=== PATIENT | male | born 1975 | race Caucasian/White ===

== ENCOUNTER 2022-04-16 12:01 | Emergency (ER) | payer OTHER, SELFPAY ==
[2022-04-16 12:15] VITALS: BP 153/77; PULSE 71; RESP 20; TEMP 36.6; O2SAT 100
--- NOTE | 2022-04-16 12:22 | ED.MEDCLEAR ---
HPI - Medical Clearance General Chief complaint: Medical Clearance Stated complaint: Medication Refill Time Seen by Provider: 04/16/22 12:20 History of Present Illness HPI Narrative: Brant Morfin is a 46-year-old male with a PMH of high blood pressure, IBS and anxiety, who comes for a refill on his lisinopril; has had meds through yesterday and is not symptomatic Related Information Home Medications Medication Instructions Recorded Confirmed lisinopril 40 mg tablet 40 mg PO DAILY 03/05/20 04/16/22 eluxadoline 75 mg tablet (Viberzi) 1 tablet PO BID 04/16/22 04/16/22 sertraline 50 mg tablet 1 tablet PO HS 04/16/22 04/16/22 Allergies Allergy/AdvReac Type Severity Reaction Status Date / Time No Known Allergies Allergy Verified 04/16/22 12:09 Review of Systems Review of Systems: CONSTITUTIONAL: Denies fever, chills, sweats. EYES: Denies visual changes, redness, discharge. ENT: Denies rhinorrhea, congestion, sore throat, otalgia. CARDIOVASCULAR: Denies chest pain, palpitations, edema. RESPIRATORY: Denies dyspnea, wheezing, cough GASTROINTESTINAL: Denies abdominal pain, nausea, vomiting, diarrhea. GENITOURINARY: Denies dysuria, hematuria, abnormal discharge SKIN: Denies rash or itching. NEUROLOGIC: Denies numbness, or focal weakness. PSYCHIATRIC: Denies anxiety or depression. PMFSH Past Medical History Medical History Anxiety Essential hypertension IBS (irritable bowel syndrome) Surgical History Surgical History H/O arthroscopy Family History Family History Father Diabetes mellitus Hyperlipemia Mother Hypertension Sibling Hyperlipemia Social History Social History Smoking status: Never smoker Comments At time of signature, I agree with nursing past medical, surgical, social and family history. There is no relevant family history pertinent to the presenting complaint. Exam Narrative: GENERAL: This is a well-nourished, well-developed patient, in mild distress. HEAD: normocephalic, atraumatic. EYES: . Sclera clear/white. Vision is grossly intact. EARS: External ears normal, Hearing grossly intact. NOSE: External nose normal without nasal discharge, nares without redness, no rhinorrhea. THROAT: Mucous membranes moist, NECK: Neck supple, CARDIOVASCULAR: Regular rate and rhythm without murmurs, gallops, or rubs. RESPIRATORY: Clear to auscultation. Breath sounds equal bilaterally. No wheezes, rales, or rhonchi. GASTROINTESTINAL: Not done SKIN: warm, intact with no suspicious lesions or rash, good texture and turgor. NEURO: awake, alert, and oriented to person, place and time. There were no obvious focal neurologic abnormalities. Steady gait EXTREMITIES: Normal range of motion. BACK: Nontender without deformity Course Course Emergency Course: Patient here for refill on lisinopril 40 mg daily Level of Care: Express Care Visit Vital Signs Vital signs: Vital Signs Temperature 97.9 F 04/16/22 12:15 Pulse Rate 71 04/16/22 12:15 Respiratory Rate 20 04/16/22 12:15 Blood Pressure 153/77 H 04/16/22 12:15 Pulse Oximetry 100 04/16/22 12:15 Oxygen Delivery Room Air 04/16/22 12:15 Temperature 97.9 F 04/16/22 12:15 Pulse Rate 71 04/16/22 12:15 Respiratory Rate 20 04/16/22 12:15 Blood Pressure 153/77 H 04/16/22 12:15 Pulse Oximetry 100 04/16/22 12:15 Oxygen Delivery Room Air 04/16/22 12:15 MDM - Medical Clearance MDM Narrative Medical decision making narrative: Medication refill only Critical Care Time Critical Care Time Critical Care Time: No Discharge Plan Discharge Clinical Impression: Encounter for medication refill Patient Disposition: Home, Self-Care Condition: Stable Instructions: Medicine Refill (ED)
== END 2022-04-16 12:28 | disposition home or self-care (01) ==
PROVIDERS: Emergency Provider Nurse Practitioner
DX: Z76.0 Encounter for issue of repeat prescription (principal); F41.9 Anxiety disorder, unspecified
CPT/HCPCS: 99211; G0463

== ENCOUNTER 2022-07-01 11:18 | Emergency (ER) | payer OTHER, SELFPAY ==
--- NOTE | 2022-07-01 11:19 | ED.EAR ---
HPI - Ear Problem General Chief complaint: Ear Stated complaint: Lt Ear Irritation Time Seen by Provider: 07/01/22 11:20 Source: patient, RN notes reviewed and old records reviewed Mode of arrival: ambulatory Limitations: no limitations History of Present Illness HPI Narrative: 46-year-old male presents to the [facility] with complaints of left ear pain for 2 to 3 days. States that pain woke him up this morning. Noticed some discharge describes it as clear with a blood tinge. Denies any fevers. No congestion. No chest pain or shortness of breath. Denies any dizziness, blurry vision or change in vision. MD Complaint: ear pain Location: left ear Related Data Home Medications Medication Instructions Recorded Confirmed sertraline 50 mg tablet 1 tablet PO HS 04/16/22 07/01/22 buspirone 10 mg tablet 10 mg PO DAILY 07/01/22 07/01/22 Allergies Allergy/AdvReac Type Severity Reaction Status Date / Time No Known Allergies Allergy Verified 07/01/22 11:19 Review of Systems Review of Systems: All systems reviewed & are unremarkable except as noted in HPI and below Constitutional: Constitutional: Reports no additional constitutional complaints, Denies chills and Denies fever(s) Eyes: Eyes: Reports no additional eye complaints ENT: Reports as per HPI, Denies change in voice, Denies dental pain, Denies vertigo, Denies dizziness and Denies throat swelling Comments: Ear pain Cardiovascular: Cardiovascular: Reports no additional cardiovascular complaints, Denies chest pain and Denies dyspnea Respiratory: Respiratory: Reports no additional respiratory complaints, Denies cough and Denies dyspnea Gastrointestinal: Gastrointestinal: Reports no additional gastrointestinal complaints, Denies abdominal pain, Denies nausea and Denies vomiting Musculoskeletal: Musculoskeletal: Reports no additional musculoskeletal complaints Integumentary/Breasts: Skin/Breast: Reports system reviewed and no additional complaints, except as docu Neurologic: Reports system reviewed and no additional complaints, except as documented, Denies vertigo and Denies dizziness Psychiatric: Psychiatric: Reports no additional psychiatric complaints Allergic/Immunologic: Allergic/Immunologic: Reports no additional allergic/immunologic complaints and Denies throat swelling PMFSH Past Medical History Medical History Anxiety Essential hypertension IBS (irritable bowel syndrome) Surgical History Surgical History H/O arthroscopy Family History Family History Father Diabetes mellitus Hyperlipemia Mother Hypertension Sibling Hyperlipemia Social History Social History Smoking status: Never smoker Comments At the time of my signature, I reviewed and agree with the nursing past medical, surgical, social, and family history. There is no relevant family history pertinent to the patient complaint. Exam Const: General: healthy appearing and no acute distress Nutritional Appearance: well nourished Orientation/consciousness: patient oriented x3 Limitations: no limitations HENMT: Head: normal to inspection Ears: external ears normal, EAC's normal, mastoids normal, Abnormal EAC present erythema on the left and otic discharge clear; no EA tenderness, no periauricular adenopathy and TM abnormal bulging on the left, with fluid behind the TM on the left and perforated (pinpoint 6:00) with clear discharge on the left; without purulent discharge; not erythematous General nose exam: Normal external nose present and Normal nasal mucous membranes and turbinates present Face and sinus: normal facial exam and sinuses nontender Mouth: Yes Normal oral and palatal mucosa present Throat: posterior oropharynx normal, tonsils normal and uvula midline Eyes:
[2022-07-01 11:20] VITALS: BP 125/75; PULSE 74; RESP 18; TEMP 36.6; O2SAT 98
== END 2022-07-01 11:32 | disposition home or self-care (01) ==
PROVIDERS: Emergency Provider Nurse Practitioner
DX: H65.92 Unspecified nonsuppurative otitis media, left ear (principal); H72.92 Unspecified perforation of tympanic membrane, left ear; I10 Essential (primary) hypertension; F41.9 Anxiety disorder, unspecified
CPT/HCPCS: 99213; G0463

== ENCOUNTER 2023-07-14 09:33 | Emergency (ER) | payer OTHER, SELFPAY ==
--- NOTE | ~2023-07-14 | XR_ITS ---
Right Shoulder Technique: AP and scapular Y views were obtained. Clinical History: Injury Findings: No fracture or dislocation is seen. Osseous alignment is anatomic. The glenohumeral and acr omioclavicular joint spaces are preserved. Soft tissues are unremarkable. Impression: Unremarkable right shoulder radiographs. Reviewed, dictated and finalized at [facility]. Impression: Unremarkable right shoulder radiographs.
--- NOTE | 2023-07-14 09:35 | ED.UPPEXIN ---
HPI - Extremity Injury (Upper) General Chief Complaint: Extremity Injury, Upper Stated Complaint: R SHOULDER INJURY Time Seen by Provider: 07/14/23 09:34 Source: patient Mode of arrival: ambulatory Limitations: no limitations History of Present Illness HPI narrative: Brant is a 47-year-old male patient presenting to the clinic today with complaints of a right shoulder injury that occured on Tuesday. He reports he was lifting a luggage bag that weighed 47.7 pounds when he felt a pop and pain in his right shoulder. States pain is to the anterior and posterior shoulder with pain radiating into his trapezius muscle. Pain is 1/10 when not using his arm but 7/10 when lifting a gallon of milk this morning. Denies any numbness, tingling, or weakness in his upper extremities. Has been icing and using Naproxen Related Data Home Medications Medication Instructions Recorded Confirmed sertraline 50 mg tablet 1 tablet PO HS 04/16/22 07/14/23 buspirone 10 mg tablet 10 mg PO DAILY 07/01/22 07/14/23 Allergies Allergy/AdvReac Type Severity Reaction Status Date / Time smallpox vaccine,live Allergy Other Verified 07/14/23 09:48 Review of Systems Review of Systems: Pertinent positives per HPI. Patient denies any fever, chills, rash, headache, visual changes, dizziness, cough, runny nose, sore throat, shortness of breath, chest pain, palpitations, nausea, vomiting, diarrhea, constipation, abdominal pain, or any urinary issues. PMFSH Past Medical History Medical History Anxiety Essential hypertension IBS (irritable bowel syndrome) Surgical History Surgical History H/O arthroscopy Family History Family History Father Diabetes mellitus Hyperlipemia Mother Hypertension Sibling Hyperlipemia Social History Social History Smoking status: Never smoker Comments At the time of my signature, I reviewed and agree with the nursing past medical, surgical, social, and family history. There is no relevant family history pertinent to the patient complaint. Exam Narrative: General: Well-developed, well nourished, in no apparent distress Head: Normocephalic, atraumatic. Cardio: Regular rate and rhythm, s1 and s2 normal, no murmur appreciated. Resp: Clear to auscultation bilaterally, no rhonchi, rales, wheezing or rubs. Musculoskeletal: No deformity, tender to palpation over the anterior and posterior shoulder, pain with raising arm above head,decrease posterior reach due to pain, negative empty can, full can, and drop arm test, positive mercedes/cross arm test, muscle strength strong and equal, peripheral pulse strong, no edema, no cyanosis, normal gait and station Course Course Emergency Course: Portions of this record may have been created with voice recognition software. Level of Care: Express Care Visit Vital Signs Vital signs: Vital signs reviewed MDM - Extremity Injury (Upper) MDM Narrative Medical decision making narrative: At the time of visit patient is resting on the exam table. X-ray of the right shoulder is negative for any sign of fracture or AC separation. Patient has negative empty can, full can, and drop-arm test. Patient less likely has a rotator cuff tear. I suspect the patient has a shoulder strain. Supportive measures were discussed with the patient he voiced understanding discharge instructions agrees to treatment plan. Will send in prescription for Medrol Dosepak and have him follow-up with his PCP in 1 week if symptoms persist as he may need an MRI of his right shoulder. Differential Diagnosis Differential diagnosis: Likely dislocation of shoulder (shoulder strain) Discharge Plan Discharge Clinical Impression: Shoulder strain Qualifiers: Encounter type:
[2023-07-14 09:46] VITALS: BP 164/87; PULSE 76; RESP 16; TEMP 36.3; O2SAT 100
[2023-07-14 09:48] VITALS: BP 164/87; PULSE 76; RESP 16; TEMP 36.3; O2SAT 100
== END 2023-07-14 10:29 | disposition home or self-care (01) ==
PROVIDERS: Emergency Provider Nurse Practitioner Family
DX: S46.911A Strain of unspecified muscle, fascia and tendon at shoulder and upper arm level, right arm, initial encounter (principal); X50.0XXA Overexertion from strenuous movement or load, initial encounter; I10 Essential (primary) hypertension; F41.9 Anxiety disorder, unspecified
CPT/HCPCS: 73030; 99213; G0463

== ENCOUNTER 2023-08-21 10:28 | Emergency (ER) | payer OTHER, SELFPAY ==
[2023-08-21 10:35] VITALS: BP 155/94; PULSE 66; RESP 18; TEMP 36.3; O2SAT 98
--- NOTE | 2023-08-21 11:15 | ED.GENADULT ---
HPI - General Adult General Chief complaint: Upper Respiratory Infection Stated complaint: Cough,Congestion Time Seen by Provider: 08/21/23 11:10 History of Present Illness HPI narrative: 47-year-old male patient presents to the [facility] with complaints of cough for the past 3 weeks. Patient states he did test himself for COVID for the 1st week of symptoms and tested negative. Patient denies any chest pain or shortness of breath at this time. Patient states only has shortness of breath when he is coughing real hard. Patient states he has been exercising and doing all his daily normal activities. Patient states he has been taking [id number] Delsym and Zyrtec for his symptoms. Patient denies fevers body aches or chills. Patient states he just has this cough that will not go away. 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 Related Data Home Medications Medication Instructions Recorded Confirmed sertraline 50 mg tablet 1 tablet PO HS 04/16/22 08/21/23 buspirone 10 mg tablet 10 mg PO DAILY 07/01/22 08/21/23 fluoxetine 20 mg capsule 20 mg PO DAILY 08/21/23 08/21/23 testosterone 10 mg/0.5 0.5 pump transdermal DAILY 08/21/23 08/21/23 gram/actuation transdermal gel pump (Fortesta) Allergies Allergy/AdvReac Type Severity Reaction Status Date / Time smallpox vaccine,live AdvReac Severe Other Verified 08/21/23 10:37 Review of Systems Review of Systems: CONSTITUTIONAL: Denies fever, chills, or sweats. EYES: Denies visual changes, redness, or discharge. ENT: Denies rhinorrhea, congestion, sore throat, or otalgia. CARDIOVASCULAR: Denies chest pain, palpitations, or edema. RESPIRATORY: Positive cough , denies dyspnea. GASTROINTESTINAL: Denies abdominal pain, nausea, vomiting, or diarrhea. GENITOURINARY: Denies dysuria or hematuria. SKIN: Denies rash or itching. MUSCULOSKELETAL: Denies back pain, joint pain, or myalgia. NEUROLOGIC: Denies headache, numbness, or weakness. PSYCHIATRIC: Denies anxiety or depression. [facility] Past Medical History Medical History Anxiety Essential hypertension IBS (irritable bowel syndrome) Surgical History Surgical History H/O arthroscopy Family History Family History Father Diabetes mellitus Hyperlipemia Mother Hypertension Sibling Hyperlipemia Social History Social History Smoking status: Never smoker Comments At the time of my signature I agree with nursing past medical history, surgical, social, and family history. There is no relevant family history pertinent to the presenting complaint. Exam Narrative: GENERAL: Well-appearing, well-nourished, and in no acute distress. HEAD: Normocephalic, atraumatic. EYES: PERRLA and EOMI. ENT: Nares clear, no rhinorrhea or epistaxis. Mucous membranes moist. posterior pharynx no erythema, tonsillar enlargement, exudates or lesions present. Bilateral TMs are clear no erythema or foreign bodies canal. NECK: Supple. No lymphadenopathy CHEST: Patient has inspiratory and expiatory wheezing to all 4 lobes on bilateral sides. No respiratory distress. no tripoding noted. HEART: Regular rate and rhythm. No murmur heard. Normal peripheral pulses. ABDOMEN: Soft, nontender, nondistended, normal active bowel sounds. EXTREMITIES: Normal range of motion. No edema. SKIN: Warm, dry, no rash. NEURO: No focal deficits. Alert and oriented x3. Course Course Level of Care: Express Care Visit Reevaluation(s) Reevaluation #1: re-evaluate patient after receiving the treatment today patient's are much improved and only hear wheezing to the right lower lung on inspiration patient states he is feeling much better and take a deep breath. Patient is disch
[2023-08-21 11:22] VITALS: PULSE 66; RESP 18; O2SAT 98
[2023-08-21] MEDS: IPRATROPIUM BR 0.02% INH SOLN 0.5 MG/2.5 ML VIAL INHALATION (11:22)
[2023-08-21] MEDS: ALBUTEROL SULFATE NEB 2.5 MG/3 ML INH INHALATION (11:22)
[2023-08-21 11:50] VITALS: PULSE 82; RESP 18; O2SAT 98
== END 2023-08-21 11:56 | disposition home or self-care (01) ==
PROVIDERS: Emergency Provider Nurse Practitioner Family
DX: J40 Bronchitis, not specified as acute or chronic (principal); I10 Essential (primary) hypertension; Z79.899 Other long term (current) drug therapy
CPT/HCPCS: 94640; 99213; G0463

== ENCOUNTER 2023-10-03 10:50 | Emergency (ER) | payer OTHER, SELFPAY ==
--- NOTE | 2023-10-03 10:52 | ED.URI ---
HPI - URI/Sore Throat General Chief Complaint: Upper Respiratory Infection Stated Complaint: Cold symptoms;Fever Time Seen by Provider: 10/03/23 10:52 Source: patient Mode of arrival: ambulatory Limitations: no limitations History of Present Illness HPI Narrative: Patient is a 48-year-old male who presents with 3-4 weeks of cough, congestion and fever that started today. Patient has tried multiple upgl-cii-tbyaist medications with no relief. Reports he has wheezes at times. Denies any sinus pressure, ear pain, sore throat, nausea, vomiting, diarrhea. Related Data Home Medications Medication Instructions Recorded Confirmed testosterone 10 mg/0.5 0.5 pump transdermal DAILY 08/21/23 10/03/23 gram/actuation transdermal gel pump (Fortesta) Allergies Allergy/AdvReac Type Severity Reaction Status Date / Time smallpox vaccine,live AdvReac Severe Other Verified 10/03/23 10:58 Review of Systems Review of Systems: All systems reviewed & are unremarkable except as noted in HPI and below Constitutional: Constitutional: Denies body ache(s), Denies chills, Denies fatigue, Denies fever(s), Denies headache(s), Denies malaise and Denies weakness Eyes: Eyes: Denies blurry vision, Denies itchy eyes and Denies loss of vision ENT: Denies otalgia, Denies headache(s), Reports nasal congestion, Denies sinus pain and Denies sore throat Cardiovascular: Cardiovascular: Denies chest pain, Denies irregular heart rhythm and Denies dyspnea Respiratory: Respiratory: Reports cough and Denies dyspnea Gastrointestinal: Gastrointestinal: Denies abdominal pain, Denies diarrhea, Denies nausea and Denies vomiting Musculoskeletal: Musculoskeletal: Denies back pain, Denies myalgias and Denies arthralgias Integumentary/Breasts: Skin/Breast: Denies pruritus and Denies rash Neurologic: Denies headache(s), Denies loss of vision and Denies weakness Psychiatric: Psychiatric: Reports no additional psychiatric complaints Endocrine: Endocrine: Denies fatigue Allergic/Immunologic: Allergic/Immunologic: Denies itchy eyes PMFSH Past Medical History Medical History Anxiety Essential hypertension IBS (irritable bowel syndrome) Surgical History Surgical History H/O arthroscopy Family History Family History Father Diabetes mellitus Hyperlipemia Mother Hypertension Sibling Hyperlipemia Social History Social History Smoking status: Never smoker Comments At time of signature, agree with nursing past medical, surgical, social and family history. There is no relevant family history pertinent to the presenting complaint. Exam Const: General: cooperative, healthy appearing, comfortable, no acute distress and well nourished Nutritional Appearance: well nourished Orientation/consciousness: patient oriented x3 Limitations: no limitations HENMT: Head: normal to inspection, normocephalic and atraumatic Ears: hearing grossly normal bilaterally, external ears normal, TM's normal bilaterally, EAC's normal and no periauricular adenopathy Face/Nose/Sinus: Normal external nose present, Abnormal mucous membranes and turbinates present erythematous bilateral and diffuse, normal facial exam, sinuses nontender and face symmetric Face and sinus: normal facial exam, sinuses nontender and face symmetric Mouth: Yes Normal oral and palatal mucosa present, Yes lip normal, Yes tongue normal, Yes Normal salivary glands and ducts present, Yes oropharynx normal and Yes moist mucous membranes Teeth and gingiva: dentition normal Throat: posterior oropharynx normal, tonsils normal and uvula midline Eyes: General: appearance normal, both eyes and all related structures Alignment and Position: alignment normal and position normal Periorbital: pe
[2023-10-03 11:01] VITALS: BP 131/82; PULSE 88; RESP 16; TEMP 37; O2SAT 100
== END 2023-10-03 11:25 | disposition home or self-care (01) ==
PROVIDERS: Emergency Provider Nurse Practitioner Family
DX: J06.9 Acute upper respiratory infection, unspecified (principal); I10 Essential (primary) hypertension
CPT/HCPCS: 99213; G0463